=== PATIENT | female | born 1995 | race Caucasian/White ===

== ENCOUNTER 2016-10-11 15:58 | Emergency (ER) | payer BC ==
[~2016-10-11] VITALS: Ht 160 cm; Wt 76.5 kg
[~2016-10-11 15:58] MED LIST: BENADRYL
[2016-10-11 16:18] VITALS: Ht 160 cm; Wt 76.5 kg
[2016-10-11] MEDS ORDERED: ONDANSETRON (ODT) 4 MG TAB ODT STA (18:34)
[2016-10-11] MEDS ORDERED: IBUPROFEN 600 MG TAB PO ONE (19:00)
[2016-10-11] MEDS ORDERED: AMO500 PO (19:49)
[2016-10-11] MEDS ORDERED: IBUP-1542 PO (19:49)
[2016-10-11] MEDS ORDERED: ONDA8TAB14 PO (19:49)
--- NOTE | 2016-10-11 19:52 | ERD ---
ER Documentation Chief Complaint Date/Time DATE: 10/11/16 TIME: 19:50 Chief Complaint SWOLLEN THROAT; COUGHING; DIZZINESS; BUMP @ BACK OF EAR; VOMITTING HPI This 20-year-old female complains of a three-day history of sore throat, dizziness and multiple complaints. She complains of a bump on the posterior aspect of right ear,. She had one episode of vomiting that she feels is due to gagging from sore throat. She denies abdominal pain, diarrhea, neck stiffness or rashes. She feels she may have had tactile fevers but no measured temperature. ROS All systems reviewed and are negative except as per history of present illness. Medications Home Meds Active Scripts Amoxicillin* (Amoxicillin*) 500 Mg Cap, 500 MG PO TID for 10 Days, CAP Prov:RAMONITA WALL MD 10/11/16 Ibuprofen* (Motrin*) 600 Mg Tab, 600 MG PO Q6, #15 TAB Prov:RAMONITA WALL MD 10/11/16 Ondansetron (Ondansetron Odt) 8 Mg Tab.rapdis, 8 MG PO Q6H Y for NAUSEA AND/OR VOMITING, #6 TAB Prov:RAMONITA WALL MD 10/11/16 Reported Medications [Benadryl] No Conflict Check 03/28/10 Allergies Allergies: Coded Allergies: No Known Allergies (Verified Allergy, Mild, 03/28/10) PMhx/Soc Medical and Surgical Hx: pt denies Surgical Hx History of Surgery: No Anesthesia Reaction: No Hx Neurological Disorder: No Hx Respiratory Disorders: Yes (ASTHMA) Hx Cardiac Disorders: No Hx Psychiatric Problems: No Hx Miscellaneous Medical Probl: No Hx Alcohol Use: No Hx Substance Use: No Hx Tobacco Use: No Smoking Status: Never smoker Physical Exam Vitals Vital Signs Date Time Temp Pulse Resp B/P Pulse Ox O2 Delivery O2 Flow Rate FiO2 10/11/16 16:18 98.0 83 19 105/64 100 Physical Exam Const: [] Alert, [id number] per Head: Atraumatic Eyes: Normal Conjunctiva ENT: Normal External Ears, Nose and Mouth. Tonsils 3+ with erythema. Uvula midline airway patent. Slight tender postauricular lymph node on the right. No mastoid tenderness. Neck: Full range of motion..~ No meningismus. Resp: Clear to auscultation bilaterally Cardio: Regular rate and rhythm, no murmurs Abd: Soft, non tender, non distended. Normal bowel sounds Skin: No petechiae or rashes Back: No midline or flank tenderness Ext: No cyanosis, or edema Neur: Awake and alert Psych: Normal Mood and Affect Results 24 hrs Laboratory Tests Test 10/11/16 18:51 Bedside Glucose 107mg/dL Current Medications Medications (Trade) Dose Ordered Sig/Ameena Route PRN Reason Start Time Stop Time Status Last Admin Dose Admin Ibuprofen (Motrin) 600 mg ONCE ONCE PO 10/11/16 19:00 10/11/16 19:01 DC 10/11/16 18:55 Ondansetron HCl (Zofran Odt) 8 mg ONCE STAT ODT 10/11/16 18:34 10/11/16 18:35 DC 10/11/16 18:55 Procedures/MDM Patient is requesting a Accu-Chek given a family history diabetes. Accu-Chek was 108. Patient has signs and symptoms of pharyngitis and will be treated with amoxicillin and ibuprofen Zofran for nausea. Patient has no signs or symptoms to suggest airway obstruction, abscess, sepsis, acute abdomen or additional emergent causes of vomiting or sore throat. She will treated and advised to follow-up with primary doctor this week return to the ER for new or worsening symptoms. The patient was stable with no new complaints during the ER course. Clinically, there is no current evidence to suggest meningitis, sepsis, acute abdomen, pneumonia, acute coronary syndrome, pulmonary embolism, or any other emergent condition appearing to require further evaluation or hospitalization. The patient should certainly return for any new or worsening symptoms per the aftercare instructions. They should otherwise follow-up with her primary care doctor for reevaluation this week. Departure Diagnosis: Primary Impression: Pharyngitis Pharyngitis/tonsillitis etiology: unspecified etiology Qualified Code: J02.9 - Pharyngitis, unspecified etiology Additional Impression: Vomiting Vomiting type: unspecified Vomiting Intractability: unspecified Nausea presence: unspecified Qualified Code: R11.10 - Vomiting, intractability of vomiting not specified, presence of nausea not specified, unspecified vomiting type Condition: Stable Patient Instructions: Pharyngitis, Strep (Presumed), Vomiting (6Y-Adult) Additional Instructions: Blood sugar normal today. Recheck with primary doctor for a complete physical, or recheck for new or worsening symptoms. RAMONITA WALL MD Oct 11, 2016 19:52
[2016-10-11 20:16] VITALS: BP 108/64; PULSE 65; RESP 16; TEMP 98.4
== END 2016-10-11 20:17 | disposition home or self-care (01) ==
LOC: FTE 15:58
DX: J02.9 Acute pharyngitis, unspecified (principal); J45.909 Unspecified asthma, uncomplicated
CPT/HCPCS: 82962; Z7502; Z7610; 99283